=== PATIENT | male | born 1995 | race Caucasian/White ===

== ENCOUNTER 2017-08-18 07:57 | Emergency (ER) | payer MEDICAID ==
--- NOTE | 2017-08-18 08:05 | EDPHY ---
H & P Time Seen by Provider: 08/18/17 08:05 HPI/ROS: Chief Complaint: Abdominal pain HPI: 21-year-old male started having right lower quadrant abdominal pain and flank pain this morning. Patient states he has had increased urination for the last 2 days. No fevers or chills. Some nausea no vomiting. Pain is 6/10. It is nonradiating. There are no aggravating or alleviating factors. Does not have a history of similar pain in the past. ROS: 10 point Review of Systems is negative except as noted in the HPI. PMH: Denies Social History: No smoking, no alcohol, no recreational drug use Family History: non-contributory Physical Exam: Gen: Awake, Alert, No Distress HEENT: Nose: no rhinorrhea Eyes: PERRLA, EOMI Mouth: Moist mucosa Neck: Supple, no JVD Chest: nontender, lungs clear to auscultation Heart: S1, S2 normal, no murmur Abd: Soft, non-tender, no guarding Back: no CVA tenderness, no midline tenderness Ext: no edema, non-tender Skin: no rash Neuro: CN II-XII intact, Sensation grossly intact, Strength 5/5 in bilateral upper and lower extremities Constitutional: Initial Vital Signs Temperature (C) 36.5 C 08/18/17 08:04 Heart Rate 82 08/18/17 08:04 Respiratory Rate 16 08/18/17 08:04 Blood Pressure 149/93 H 08/18/17 08:04 O2 Sat (%) 98 08/18/17 08:04 O2 Delivery Mode Room Air Allergies/Adverse Reactions: No Known Allergies Allergy (Unverified 08/18/17 08:11) Home Medications: Medication Instructions Recorded NK [No Known Home Meds] 08/18/17 Medical Decision Making - Diagnostics Imaging Results: Imaging Impressions Abdomen/Pelvis CT 08/18/17 08:41 Impression: 3.5 mm calculus in the bladder on the bladder side of the ureterovesical junction on the right indicating a recently passed stone. Mild right hydroureter and hydronephrosis. Bilateral nonobstructive nephrolithiasis. Results called and discussed with Rajan Veras MD on 08/18/2017 at 9:15 a.m. Attention: This CT examination is specifically designed to evaluate patients who are clinically suspected of having acute obstructive uropathy. This examination does not use radiographic contrast, and as such, provides only a limited evaluation of the abdomen, pelvis and retroperitoneum. If there is further clinical suspicion for pathological conditions other than obstructive uropathy, a complete CT evaluation of the abdomen and pelvis utilizing intravenous, oral, and rectal contrast should be considered. Imaging: Discussed imaging studies w/ scallop shucker Radiologist ED Course/Re-evaluation: Patient is feeling much better. He has received Toradol and IV fluids here. CT scan shows that he has passed stone is in his bladder. He has been given instructions to make sure that he hydrates adequately. Will refer the [facility] for follow-up. He has been given a urine strainer and will take the stone to his primary care physician. - Data Points Laboratory Results: Laboratory Results 08/18/17 08:17 08/18/17 08/18/17 08/18/17 08:27 08:25 08:17 WBC 7.76 10^3/uL 10^3/uL (3.80-9.50) RBC 5.57 10^6/uL 10^6/uL (4.40-6.38) Hgb 17.5 g/dL g/dL (13.7-17.5) POC Hgb 16.0 gm/dL gm/dL (13.7-17.5) Hct 47.5 % % (40.0-51.0) POC Hct 47 % % (40-51) MCV 85.3 fL fL (81.5-99.8) MCH 31.4 pg pg (27.9-34.1) MCHC 36.8 g/dL H g/dL (32.4-36.7) RDW 12.3 % % (11.5-15.2) Plt Count 281 10^3/uL 10^3/uL (150-400) MPV 8.8 fL fL (8.7-11.7) Neut % (Auto) 65.5 % % (39.3-74.2) Lymph % (Auto) 23.6 % % (15.0-45.0) Terrell % (Auto) 8.5 % % (4.5-13.0) Eos % (Auto) 1.3 % % (0.6-7.6) Baso % (Auto) 0.5 % % (0.3-1.7) Nucleat RBC Rel Count 0.0 % % (0.0-0.2) Absolute Neuts (auto) 5.08 10^3/uL 10^3/uL (1.70-6.50) Absolute Lymphs (auto) 1.83 10^3/uL 10^3/uL (1.00-3.00) Absolute Monos (auto) 0.66 10^3/uL 10^3/uL (0.30-0.80) Absolute Eos (auto) 0.10 10^3/uL 10^3/uL (0.03-0.40) Absolute Basos (auto) 0.04 10^3/uL 10^3/uL (0.02-0.10) Absolute Nucleated RBC 0.00 10^3/uL 10^3/uL (0-0.01) Immature Gran % 0.6 % % (0.0-1.1) Immature Gran # 0.05 10^3/uL 10^3/uL (0.00-0.10) POC Sodium 139 mEq/L mEq/L 141 mEq/L mEq/L (135-145) (135-145) POC Potassium 3.5 mEq/L mEq/L 3.3 mEq/L mEq/L (3.3-5.0) (3.3-5.0) POC Chloride 107.0 mEq/L mEq/L 105 mEq/L mEq/L (97-110) (97-110) POC Total CO2 23 mEq/L mEq/L (22-31) POC BUN 12 mg/dL mg/dL 15 mg/dL mg/dL (7-23) (7-23) POC Creatinine 1.0 mg/dL mg/dL 1.0 mg/dL mg/dL (0.7-1.3) (0.7-1.3) POC Glucose 110 mg/dL H mg/dL 113 mg/dL H mg/dL (70-100) (70-100) POC Calcium 9.6 mg/dL mg/dL (8.5-10.4) POC Total Bilirubin 0.9 mg/dL mg/dL (0.1-1.4) POC AST 29 IU/L IU/L (17-59) POC ALT 22 IU/L IU/L (21-72) POC Alk Phosphatase 83 IU/L IU/L (38-126) POC Total Protein 7.4 g/dL g/dL (6.3-8.2) POC Albumin 4.3 g/dL g/dL (3.5-5.0) Medications Given: Discontinued Medications Sodium Chloride (Ns) 1,000 mls @ 0 mls/hr IV ONCE ONE; Wide Open PRN Reason: Protocol Stop: 08/18/17 08:12 Last Admin: 08/18/17 08:20 Dose: 1,000 mls Ketorolac Tromethamine (Toradol) 15 mg IVP EDNOW ONE Stop: 08/18/17 08:12 Last Admin: 08/18/17 08:28 Dose: 15 mg Ondansetron HCl (Zofran) 4 mg IVP EDNOW ONE Stop: 08/18/17 08:12 Last Admin: 08/18/17 08:28 Dose: 4 mg Point of Care Test Results: Chemistry 08/18/17 08/18/17 08:27 08:25 POC Sodium 139 mEq/L mEq/L 141 mEq/L mEq/L (135-145) (135-145) POC Potassium 3.5 mEq/L mEq/L 3.3 mEq/L mEq/L (3.3-5.0) (3.3-5.0) POC Chloride 107.0 mEq/L mEq/L 105 mEq/L mEq/L (97-110) (97-110) POC Total CO2 23 mEq/L mEq/L (22-31) POC BUN 12 mg/dL mg/dL 15 mg/dL mg/dL (7-23) (7-23) POC Creatinine 1.0 mg/dL mg/dL 1.0 mg/dL mg/dL (0.7-1.3) (0.7-1.3) POC Glucose 110 mg/dL H mg/dL 113 mg/dL H mg/dL (70-100) (70-100) POC Calcium 9.6 mg/dL mg/dL (8.5-10.4) POC Total Bilirubin 0.9 mg/dL mg/dL (0.1-1.4) POC AST 29 IU/L IU/L (17-59) POC ALT 22 IU/L IU/L (21-72) POC Alk Phosphatase 83 IU/L IU/L (38-126) POC Total Protein 7.4 g/dL g/dL (6.3-8.2) POC Albumin 4.3 g/dL g/dL (3.5-5.0) ISTAT H&H 08/18/17 08:25 POC Hgb 16.0 gm/dL gm/dL (13.7-17.5) POC Hct 47 % % (40-51) Urine Dip Collection Date 08/18/17 Collection Time 08:17 Specific Quail (1.002-1.030) 1.030 PH (5.0-7.5) 6.0 Leukocytes (Negative) Negative Nitrites (Negative) Negative Protein (Negative) 3+ Glucose (Negative) Negative Ketones (Negative) Negative Bilirubin (Negative) Negative Blood (Negative) 3+ Departure - Departure Disposition: Home, Routine, Self-Care Clinical Impression: Kidney stone Condition: Good Instructions: Kidney Stones (ED) Additional Instructions: Make sure to drink at least 8, 8 oz glasses of water a day. Strain your urine and collect a kidney stone. Take this to your primary care physician. Follow-up with primary care in about 5-7 days. Referrals: [facility],. [Clinic] - As per Instructions
[2017-08-18] MEDS ORDERED: NS 1,000 ML IV ONE (08:11)
[2017-08-18] MEDS ORDERED: KETOROLAC 15 MG/1 ML SDV IVP ONE (08:11)
[2017-08-18] MEDS ORDERED: ONDANSETRON 4 MG/2 ML VIAL IVP ONE (08:11)
[2017-08-18 08:59] LABS: PLATELET COUNT 281 10^3/uL (150-400)
[2017-08-18 09:09] VITALS: BP 134/77
== END 2017-08-18 09:42 | disposition home or self-care (01) ==
LOC: CED 07:57
DX: N20.0 Calculus of kidney (principal); E86.9 Volume depletion, unspecified
CPT/HCPCS: 74176-PO; 80053-PO; 82435-PO; 82565-PO; 82947-PO; 84132-PO; 84295-PO; 84520-PO; 85014-PO; 96374; J1885; J2405